=== PATIENT | male | born 1990 | race Caucasian/White ===

== ENCOUNTER → 2016-10-14 | Outpatient (CLI) | payer BC ==
--- NOTE | 2016-10-14 23:19 | DI ---
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 Previous Exam: None at this facility. Upright AP and lateral and upright lateral flexion and extension views are submitted. The vertebral b odies are of normal height and size. The disc spaces are normal. The pedicles and posterior elements are unremarkable. No instability is noted with flexion and extension maneuvers. Both SI joints are no rmal. Reading: Normal lumbar spine series. There is no instability noted with flexion and extension maneuvers.
--- NOTE | 2016-10-14 23:19 | DI ---
THORACIC SPINE SERIES, 10/14/2016 10:49 AM: Clinical History: Acute left-sided thoracic back pain. Previous Exam: None at this facility. 2 upright views are submitted. The vertebral bodies are of normal height and size with normal disc sp aces. Pedicles and posterior elements are normal. There are no paravertebral masses. The visualized p ortions of both lungs in the apices are normal. Reading: Normal thoracic spine series.
== END ==
LOC: MOB RAD 10:51
PROVIDERS: ATTEND Physician Assistant
DX: M47.26 Other spondylosis with radiculopathy, lumbar region (principal); M54.6 Pain in thoracic spine
CPT/HCPCS: 72070; 72110

== ENCOUNTER → 2016-10-28 | Outpatient (CLI) | payer BC ==
--- NOTE | 2016-10-28 14:18 | DI ---
MRI LUMBAR SPINE W/O CN,10/28/2016 1:01 PM: Clinical History: Osteoarthritis of the spine with radiculopathy Previous Exam: Plain films of the lumbar spine performed October 14, 2016 Findings: Multiplanar MR images are obtained through the lumbar spine without contrast, and demonstrate anatomi c alignment without fractures. Vertebral body height is preserved. Intervertebral disc height is also preserved. The distal conus is normal lying at the L1 level. There is normal disc height and disc signal. Visualized portions of the kidneys are unremarkable. Individual intervertebral disc spaces: L1-S1: No significant stenosis. Impression: Normal MRI lumbar spine without evidence of central canal nor neural foraminal narrowing.
== END ==
LOC: MRI 12:58
PROVIDERS: ATTEND Physician Assistant
DX: M47.26 Other spondylosis with radiculopathy, lumbar region (principal)
CPT/HCPCS: 72148

== ENCOUNTER → 2016-10-29 | Outpatient (CLI) | payer BC ==
--- NOTE | 2016-10-29 16:12 | DI ---
MRI THORACIC SPINE W/O CN,10/29/2016 1:08 PM: Clinical History: Thoracic radiculopathy. Previous Exam: Plain film of the thoracic spine performed October 14, 2016 Findings: Multiplanar MR images are obtained through the thoracic spine without contrast. Bony alignment is anatomic. No fractures are seen. Marrow signal is preserved. Vertebral body height is preserved. Intervertebral disc height is also preserved. The surrounding musculature is unremarkab le. Visualized portions of the spleen and kidneys is unremarkable. There is no significant central canal nor neural foraminal narrowing. Impression: Normal MRI thoracic spine.
== END ==
LOC: MRI 13:04
PROVIDERS: ATTEND Neurological Surgery
DX: M54.14 Radiculopathy, thoracic region (principal)
CPT/HCPCS: 72146

== ENCOUNTER → 2016-10-30 | Outpatient (CLI) | payer BC ==
--- NOTE | 2016-10-30 12:50 | DI ---
XR HIP COMPLETE MIN 2VW U/L,10/30/2016 10:43 AM: Clinical History: Left hip pain. Previous Exam: None at this facility. Findings: 3 total views of the left hip are obtained, and demonstrate anatomic alignment without fractures. Maryjo nt space is preserved. A nonobstructive bowel gas pattern is noted. Impression: Normal left hip.
== END ==
LOC: MOB RAD 10:36
PROVIDERS: ATTEND Neurological Surgery
DX: M25.552 Pain in left hip (principal)
CPT/HCPCS: 73502

== ENCOUNTER 2016-12-09 13:20 | Emergency (ER) | payer BC ==
[2016-12-09] MEDS ORDERED: DEXTROSE 50%-WATER SYRINGE 50 ML SYRINGE ONE (13:26)
[2016-12-09] MEDS ORDERED: Sodium Chloride 0.9% 1,000 ML PRIMARY IV ONE ×2 (13:42→13:48)
[2016-12-09] MEDS ORDERED: DEXTROSE 50%-WATER SYRINGE 50 ML SYRINGE IVP ONE (13:42)
[2016-12-09] MEDS ORDERED: NORMAL SALINE 10 ML SYRINGE FLUSH IVP PRN (13:48)
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
[2016-12-09 13:55] LABS: BASOPHILS # (AUTO) 0.02 10*3/UL; BASOPHILS % (AUTO) 0.3 % (0-1); EOSINOPHILS # (AUTO) 0.07 10*3/UL; EOSINOPHILS % (AUTO) 1.2 % (0-8); HEMATOCRIT 45.1 % (42.0-52.0); LYMPHOCYTES # (AUTO) 2.45 10*3/uL; MEAN CORPUSCULAR HEMOGLOBIN 30.7 PG (27-31); MEAN CORPUSCULAR HGB CONC 35.5 g/dL (33-37); MEAN CORPUSCULAR VOLUME 86.4 FL (80-90); MEAN PLATELET VOLUME 9.7 FL (7.4-12.2); MONOCYTES # (AUTO) 0.55 10*3/UL (0.3-0.8); MONOCYTES % (AUTO) 9.4 % (5-15); NEUTROPHILS # (AUTO) 2.78 10*3/UL; NEUTROPHILS % (AUTO) 47.2 % (50-80); RED BLOOD COUNT 5.22 10^6/uL (4.70-6.10)
[2016-12-09 14:02] LABS: BLOOD UREA NITROGEN 13 mg/dL (7-22); BUN/CREATININE RATIO 14.44 (6-20); CALCIUM 9.5 mg/dL (8.7-10.7); EST GLOMERULAR FILTRATION > 60 (>60 ml/min/1.73m(2)); PLATELET MORPHOLOGY COMMENT NORMAL MORPHOLOGY (NORM); RBC MORPHOLOGY COMMENT NORMAL MORPHOLOGY (NORM); SERUM ALBUMIN 4.6 g/dL (3.5-4.8); WBC MORPHOLOGY COMMENT NORMAL MORPHOLOGY (NORM)
--- NOTE | 2016-12-09 14:13 | EKG ---
[address] [address] Measurements Intervals Cross Rate: 56 P: 58 SC: 141 QRS: 78 QRSD: 107 T: 55 QT: 431 QTc: 422 Interpretive Statements SINUS BRADYCARDIA WITH OCCASIONAL SUPRAVENTRICULAR PREMATURE COMPLEXES No previous ECG available for comparison Electronically Signed On 12-09-16 14:14:26 MDT by Jameson Rodrigues [email or web address]
[2016-12-09 14:52] VITALS: TEMP 98
[2016-12-09 15:26] LABS: BILIRUBIN,URINE NEGATIVE (NEG); CLARITY,URINE CLEAR (CLEAR); COLOR,URINE YELLOW; GLUCOSE, URINE (UA) 250 mg/dL (NEG); NITRATE,URINE NEGATIVE (NEG); OCCULT BLOOD,URINE NEGATIVE (NEG); PH,URINE 6.5 (5.0-8.5); PROTEIN,URINE NEGATIVE (NEG); URINE SAMPLE TYPE CLEAN CATCH URINE
[2016-12-09 15:27] LABS: UROBILINOGEN,URINE 0.2 EU/dL (0.2)
[2016-12-09 15:28] LABS: AMPHETAMINE SCREEN NEGATIVE (NEG); CANNABINOID SCREEN,URINE NEGATIVE (NEG); COCAINE SCREEN NEGATIVE (NEG); METHADONE URINE SCREEN NEGATIVE (NEG); METHAMPHETAMINES SCREEN,URINE NEGATIVE (NEG); OPIATE SCREEN,URINE NEGATIVE (NEG)
--- NOTE | 2016-12-09 16:11 | DI ---
XR CXR 2VW PA/LAT,12/09/2016 1:48 PM: Clinical History: Near syncope. Previous Exam: June 28, 2014 Findings: PA and lateral views of the chest are obtained, and demonstrate clear lungs. The cardiomediastinum an d bony thorax are unremarkable. Impression: Normal CT chest.
[2016-12-09 16:33] VITALS: RESP 16
--- NOTE | 2016-12-14 11:12 | HOLTER ---
[facility] Interpretive Statements Twenty four hour holter study done for bradycardia with near syncopy. There were 77170 beats recorded with 42655 normal beats. The average heart rate was 63 with minimum rate of 33 and maximum sinus rate of 128. Sinus arrthymia was present with 87 PACs with 8 singlets, 12 pairs and 12 runs of greater than 3 beats to a rate of 106, mostly sinus tachycardia. There 11 VPCs, all singlets and considerable baseline artifact which the computer called ectopy. The longest R-R interval was 2018 milliseconds with sinus bradycardia with rate of 33 with no other prolonged pauses. No diagnostic ST-T changes noted with symptoms of chest pain and no arrthymia, pauses or bradycardia associated with symptoms of dizziness or light headedness. Patient not aware of ectopy and no activity recorded with sinus tachycardia or bradycardia. Imp: Non diagnostic holter study with occasional atrial and ventricular ectopy and bradycardia to rate of 33 with no correlation of symptoms with rare arrthymia. Electronically Signed On 12-14-16 12:49:41 MDT by Jameson Rodrigues [id number]
== END 2016-12-09 16:25 | disposition home or self-care (01) ==
LOC: ER 13:20
DX: R00.1 Bradycardia, unspecified (principal); E16.2 Hypoglycemia, unspecified; R53.1 Weakness; R55 Syncope and collapse
CPT/HCPCS: 71020; 80053; 80305; 80320; 81003; 82948; 83880; 84443; 84484; 85025; 93005; 93010; 93225; 93226; 93227; 96361; 96374; 99284; J7030

== ENCOUNTER → 2016-12-15 | Outpatient (CLI) | payer BC ==
--- NOTE | 2016-12-15 12:58 | DI ---
MRI LOW EXTREMITY JNT W/CN,12/15/2016 9:32 AM: Clinical History: Pain in the left hip. Previous Exam: Plain films performed October 30, 2016 Findings: Multiplanar MR images are obtained through the left hip following the intra-articular administration of a dilute gadolinium contrast medium (at 0.1 mL of gadolinium and normal saline). There is some mild increased signal involving the superior lateral acetabular labrum. There is no full-thickness osteochondral defect. There is some mild increased new bone formation at t he head neck junction of the left proximal femur. The surrounding musculature is unremarkable. Visualized portions of the urinary bladder are unremarkable. The major vascular flow voids are unremarkable. 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
--- NOTE | 2016-12-15 13:04 | DI ---
XR INJECTION PROCEDURE HIP,12/15/2016 9:33 AM: Clinical History: Left hip pain Previous Exam: None at this facility. Procedure: Risks benefits and alternatives were explained to the patient and informed written consent obtained. The patient was placed supine on the fluoroscopy table and theleft hip prepped and draped in the usua l sterile fashion. 1% lidocaine was used for local anesthesia. Under fluoroscopic guidance, a 22-gauge spinal needle was advanced into the right hip joint. Approxim ately 17 cc of a iodinated contrast medium with normal saline and 0.1 mL of gadolinium contrast was a dministered. The patient tolerated the procedure well and was sent to the MRI scanner for the second portion of e examination. Findings: Fluoroscopic images demonstrate contrast within the hip joint. Impression: Successful hip joint arthrogram. MRI pending.
== END ==
LOC: MRI 09:26
PROVIDERS: ATTEND Orthopaedic Surgery
DX: M25.552 Pain in left hip (principal); M25.852 Other specified joint disorders, left hip
CPT/HCPCS: 27093; 73722; A9579